=== PATIENT | male | born 1955 | race Caucasian/White ===

== ENCOUNTER 2019-03-21 10:56 | Emergency (ER) | payer SELFPAY ==
[~2019-03-21] VITALS: Ht 195.6 cm; Wt 127.0 kg
[2019-03-21] MEDS ORDERED: cloNIDine HCL 0.1 MG TAB PO ONE (11:15)
[2019-03-21 11:25] LABS: Basophils # (auto) 0.1 uL; Basophils % (auto) 0.8 % (0.0-2.0); Eosinophils # (auto) 0.1 uL; Eosinophils % (auto) 1.2 % (0.0-7.0); Hematocrit 49.5 % (41.0-53.0); Hemoglobin 17.4 g/dL (13.5-17.5); Lymphocytes # (auto) 2.5 uL; Lymphocytes % (auto) 33.5 % (10.0-50.0); Mean Corpuscular Hgb Conc. 35.2 g/dL (32.0-36.0); Mean Corpuscular Volume 96.7 fL (80.0-100.0); Monocytes # (auto) 1.1 uL; Monocytes % (auto) 14.4 % (0.0-12.0); Neutrophils # (auto) 3.7 uL; Neutrophils % (auto) 50.1 % (37.0-80.0); Nucleated Red Blood Cells % 0.1 %; Platelet Count (auto) 249 10^3/uL (140-450); Red Blood Cells 5.11 10^6/uL (4.5-5.90); Red Cell Distribution Width 13.7 % (11.8-14.3); White Blood Cell 7.4 10^3/uL (4.4-10.8)
[2019-03-21 11:39] LABS: Urine Bacteria FEW /hpf (None Seen); Urine Blood Negative /uL (Negative); Urine Mucus FEW (None Seen); Urine Specific Gravity 1.014 (1.001-1.035); Urine WBC 7 /hpf (0 - 3)
[2019-03-21 11:44] LABS: BUN/Creatinine Ratio 12.4; Calcium 9.2 mg/dL (8.5-10.1)
[2019-03-21 11:46] LABS: Alcohol, Urine < 3.0 mg/dL (0-5); Amphetamine Screen, Urine NEGATIVE (NEGATIVE); Barbiturate Scree,Urine NEGATIVE (NEGATIVE); Benzodiazephine Screen, Urine NEGATIVE (NEGATIVE); Cannabinoid Screen, Urine NEGATIVE (NEGATIVE); Cocaine Screen, Urine NEGATIVE (NEGATIVE); Opiate Scree,Urine NEGATIVE (NEGATIVE); Phencyclidine Screen, Urine NEGATIVE (NEGATIVE)
[2019-03-21 12:08] LABS: Potassium 2.9 mmol/L (3.5-5.1)
[2019-03-21] MEDS ORDERED: POTASSIUM EFFERVESENT TAB 25 MEQ PO ONE (12:15)
[2019-03-21] MEDS ORDERED: POTASSIUM CHL 20 Meq TABLET PO ONE (12:45)
[2019-03-21 13:16] VITALS: BP 156/112
== END 2019-03-21 13:25 | disposition home or self-care (01) ==
LOC: ER 11:02
DX: I10 Essential (primary) hypertension (principal); E87.6 Hypokalemia
CPT/HCPCS: 36415; 80048; 80307; 81001; 85025; 93005

== ENCOUNTER 2025-06-09 08:01 | Inpatient (IN) | payer OTHER ==
[2025-06-09] VITALS (15 sets, daily range): BP systolic 124–163; BP diastolic 92–118; PULSE 76–105; RESP 12–20; TEMP 97.5–97.6; O2SAT 91–96
[~2025-06-09] VITALS: Ht 195.6 cm; Wt 149.7 kg
[~2025-06-09 08:01] MED LIST: DOCU100T7 PO; LOSA-533 PO; MULT-930 PO
[2025-06-09] MEDS: ceFAZolin 2 GM/D5W50ml 50 ML IV ONE (08:17)
[2025-06-09] MEDS: TRANEXAMIC ACID 20 ML ONE (08:44)
[2025-06-09] MEDS: BUPIVACAINE W/ EPINEPH 0.5% INJ 50ML MDV IJ ONE (08:44)
[2025-06-09] MEDS: TETRACAINE 1% INJ 2 ML VIAL IJ ONE (09:30)
[2025-06-09] MEDS ORDERED: fentaNYL CITRATE 100 MCG/2 ML VL ONE (09:31)
[2025-06-09] MEDS ORDERED: MIDAZOLAM HCL 2MG/2ML 2ml VIAL (1mg/ml) ONE ×2 (09:32→10:33)
[2025-06-09] MEDS ORDERED: PROPOFOL 10 MG/ML 20 ML IV ONE (10:29)
[2025-06-09] MEDS: CEFEPIME 1GM/50ML 50 ML IV ONE (10:29)
[2025-06-09] MEDS ORDERED: MIDAZOLAM HCL 2MG/2ML 2ml VIAL (1mg/ml) IV PRN (10:30)
[2025-06-09] MEDS ORDERED: HYDROmorphone HCL 2 MG/ML VL/or syr IV PRN (10:30)
[2025-06-09] MEDS ORDERED: hydrALAZINE HCL 20 MG/ML VL IV PRN (10:30)
[2025-06-09] MEDS: KETOROLAC TROMETH 30 MG/ML 1ML VIAL ONE (11:30)
[2025-06-09] MEDS: MORPHINE SULF PF 5 MG/10 ML VIAL ONE (11:30)
[2025-06-09] MEDS: BUPIVACAINE 0.25% INJ 50ML VIAL ONE (11:30)
[2025-06-09] MEDS: VANCOMYCIN HCL 1000 MG VL ONE (12:00)
--- NOTE | 2025-06-09 12:08 | DVHOP2 ---
Operative Report - 2 Report Details Date: 06/09/25 Preop Diagnosis: Left knee degenerative arthritis Postop Diagnosis: Left knee degenerative arthritis Surgeon: Ashlee Jewell MD Programs Assistant: Erika KINCAID Anesthesiologist: Sharon Anesthesia: Regional Drains: Jones closed wound suction Implant: DonJoy size 11 femur PS, size 10 tibial base plate, size 12 poly, size 35 patella Consent: The patient was informed of the risks and benefits of the procedure. These include but are not limited to complications of anesthesia, postoperative infection, incomplete relief of symptoms, recurrence of symptoms, damage to blood vessels, nerves and tendons, deep venous thrombosis, pulmonary embolism and possible need for repeat surgery in the future. Complications: None Estimated Blood Loss: 100 cc Fluids: See anesthesia Findings: Varus deformity, osteophytes, denuded cartilage with eburnated bone Indications for Surgery: Left knee degenerative arthritis with severe pain and functional impairment despite nonoperative management Name of Procedure Performed For a total knee arthroplasty Procedure Details Procedure Details: The patient was brought to the operating room and placed on the table in the supine position after being given spinal anesthetic with adequate analgesia obtained. Surgical timeout was performed verifying patient, laterality and procedure Preop patient received IV cefepime IV Ancef and IV tranexamic acid. Tourniquet was applied to the lower extremity. Lower extremity was prepped and draped in sterile fashion. Extremity was elevated, exsanguinated Esmarch, and tourniquet inflated. Midline incision was made followed by medial arthrotomy. I exposed the anterior medial and lateral tibial plateau and the anterior dis tete femur. Bovie and aqua mantis were used for hemostasis. I excised the anterior meniscal tissue with Bovie. I excised a portion of the fat pad with Bovie. The patella was everted and the knee flexed. I drilled the distal femur and suctioned the hole to reduce the risk of fat emboli. I inserted intramedullary guide with 5 degree valgus setting. I pinned the distal femoral cutting block anteriorly. Intramedullary earnestine was removed. Distal femoral cut was made and the block removed. I brought my attention to the tibia setting up the external cutting jig for the tibia paying attention to slope, rotation and varus valgus alignment. I set the depth and pinned the block. I used the external alignment earnestine to aid in checking alignment. Bone cut was made and bone removed releasing soft tissue attachments with Bovie. Cutting block removed. I then checked the extension gap and deemed adequate and removed the femur and tibia pins. I flexed the knee and applied the femoral sizing guide to the femur. I checked the size and external rotation setting at 90 degrees to Whitesides line and checking the epicondylar axis. I drilled the holes then removed the sizing guide and pin. I then tapped on the 4 in 1 cutting block and checked with the zonia wing anteriorly to make sure that I would not notch then pinned the block. Cuts were made and the block and pins were removed. Bone was removed with curved osteotome. I used a rongeur to remove any remaining osteophytes at the femur and tibia. I then used a lamina appliance repairer to open up the back alternating between the medial and lateral side. Any remaining meniscal tissue was excised with scalpel. I used curved osteotome, curette and rongeur to remove any posterior osteophytes. I prophylactically coagulated with aqua mantis. I then tapped on the template for the box cut and pinned it. Box cut was made and bone removed. Template and pin removed. I then tapped on the femoral trial. I then brought my attention back to the tibia sizing it. I used the external alignment earnestine to make sure that rotation and alignment were good. I made a Bovie marisa at the tibial tray marisa identifying rotation for later use. I tried various tibial polytrials. [I then brought my attention to the patella. I sequentially dissected soft tissue with Bovie. I checked the thickness with caliper. I set the appropriate depth of cut on the cutting guide. I attached the cutting guide made my cut. I then sized the patella and made my drill holes. I then placed the patella trial with appropriate depth based on overall precut thickness. ] The patella tracked nicely without thumb pressure. I removed the trials. I pinned the tray and used the reamer and keel punch. The implants were brought into the field while bone preparation was started. I used both normal saline irrigation and the CarboJet to prepare the bone. I used the bone from the cuts to graft the femoral tunnel. Once cement was ready I applied cement to the tibial implant and tibial bone tapped it on and removed excess cement in usual fashion. In similar fashion I tapped on the femoral implant. I inserted the trial polyethylene and brought the knee into 30 degrees flexion. [I then applied the patella implant in similar fashion holding pressure with the pressurization device.] I irrigated with bacisurge irrigant. Once cement cured, I checked stability and range of motion as well as patella tracking. tourniquet was released and hemostasis maintained with aqua mantis. I inserted the polyethylene and again checked stability. I used a 2 grams of vancomycin half of which was placed deep and half superficial. I repaired the extensor mechanism with the knee in flexion with #1 Ethibond interrupted [id number]. Deep subcutaneous tissue was closed with 0 Vicryl. Superficial subcutaneous tissue was closed with 2-0 vicryl interrupted. Skin was closed with alexia. I then applied the [jones closed wound suction]. Patient tolerated the procedure well and was brought to recovery room in stable condition. Condition Stable Disposition Still a Patient ASHLEE JEWELL MD Jun 09, 2025 12:08
[2025-06-09] MEDS ORDERED: ACETAMINOPHEN 325 MG TAB PO PRN (12:15)
--- NOTE | 2025-06-09 13:29 | DVH ---
EXAM: XY L KNEE 3V XRAY CLINICAL INDICATION: Postop TECHNIQUE: XY L KNEE 3V XRAY Comparison: CR KNEE LEFT 3 VIEW on DOS: 08/27/24, XR HIP LIMITED RT on DOS: 01/31/23 FINDINGS/IMPRESSION: Left total knee arthroplasty
[2025-06-09] MEDS: ceFAZolin 2 GM/D5W50ml 50 ML IV SCH (15:19)
[2025-06-09] MEDS: KETOROLAC TROMETH 30 MG/ML 1ML VIAL IV SCH (17:40)
[2025-06-09] MEDS: ACETAMINOPHEN 325 MG TAB PO SCH (17:40)
[2025-06-09] MEDS: D5W/LACTATED RINGERS 1,000 ML IV SCH (17:41)
[2025-06-09] MEDS: ONDANSETRON HCL 4 MG/2 ML VIAL IV PRN (19:53)
[2025-06-09] MEDS: PREGABALIN 25 MG CAP PO SCH (21:41)
[2025-06-09] MEDS: LOSARTAN POTASSIUM 25 MG TAB PO SCH (21:42)
[2025-06-10] VITALS (18 sets, daily range): BP systolic 124–168; BP diastolic 82–112; PULSE 81–105; RESP 15–20; TEMP 97.3–98.7; O2SAT 90–94
[2025-06-10 07:12] LABS: Chloride 100 mmol/L (98-107); Potassium 3.8 mmol/L (3.5-5.1); Sodium 137 mmol/L (136-145)
[2025-06-10 07:13] LABS: Anion Gap 10 (5-15); Carbon Dioxide 27 mmol/L (20-31)
[2025-06-10 07:14] LABS: Calcium 8.7 mg/dL (8.7-10.4)
[2025-06-10 07:16] LABS: Hematocrit 39.3 % (41.0-53.0); Hemoglobin 13.6 g/dL (13.5-17.5); Mean Corpuscular Hemoglobin 33.9 pg (28.0-32.0); Mean Corpuscular Volume 98.3 fL (80.0-100.0); Nucleated Red Blood Cells % 0.0 %
[2025-06-10 07:18] LABS: BUN/Creatinine Ratio 17.3 (10.0-20.0); Blood Urea Nitrogen 24 mg/dL (9-23); Glucose 270 mg/dL (74-106)
--- NOTE | 2025-06-10 11:20 | DVHDS2 ---
Discharge Summary Date of Admission Jun 09, 2025 at 12:09 Date of Discharge: Jun 10, 2025 Labs/Diagnostic Data: Laboratory Results Test 06/10/25 04:55 White Blood Count 15.6 10^3/uL (4.4-10.8) Red Blood Count 4.00 10^6/uL (4.5-5.90) Hemoglobin 13.6 g/dL (13.5-17.5) Hematocrit 39.3 % (41.0-53.0) Mean Corpuscular Volume 98.3 fL (80.0-100.0) Mean Corpuscular Hemoglobin 33.9 pg (28.0-32.0) Mean Corpuscular Hemoglobin Concent 34.5 g/dL (32.0-36.0) Red Cell Distribution Width 13.3 % (11.8-14.3) Platelet Count 230 10^3/uL (140-450) Mean Platelet Volume 9.4 fL (6.9-10.8) Neutrophils (%) (Auto) 84.5 % (37.0-80.0) Lymphocytes (%) (Auto) 6.3 % (10.0-50.0) Monocytes (%) (Auto) 9.1 % (0.0-12.0) Eosinophils (%) (Auto) 0.0 % (0.0-7.0) Basophils (%) (Auto) 0.1 % (0.0-2.0) Neutrophils # (Auto) 13.1 10 ^3/uL (1.6-8.6) Lymphocytes # (Auto) 1.0 10 ^3/uL (0.4-5.4) Monocytes # (Auto) 1.4 10 ^3/uL (0-1.3) Eosinophils # (Auto) 0 10 ^3/uL (0-0.8) Basophils # (Auto) 0 10 ^3/uL (0-0.2) Nucleated Red Blood Cells 0.0 % Sodium Level 137 mmol/L (136-145) Potassium Level 3.8 mmol/L (3.5-5.1) Chloride Level 100 mmol/L (98-107) Carbon Dioxide Level 27 mmol/L (20-31) Anion Gap 10 (5-15) Blood Urea Nitrogen 24 mg/dL (9-23) Creatinine 1.39 mg/dL (0.700-1.30) Glomerular Filtration Rate Calc 55 mL/min (>90) BUN/Creatinine Ratio 17.3 (10.0-20.0) Serum Glucose 270 mg/dL (74-106) Calcium Level 8.7 mg/dL (8.7-10.4) Other Laboratory Tests 06/10/25 04:55 Brief Hx & Hospital Course: Patient was brought to the hospital yesterday to undergo a left total knee arthroplasty. He tolerated the procedure well without complications and was kept overnight for postoperative observation. Patient has remained medically stable denying any overnight events reports being able to get up and walk with the help of physical therapy and his walker and was only able to take a few steps outside of his door yesterday both able to go down the dubose and back to his room today. Patient reports some postoperative knee pain that is being well managed with the help of pain medication. Patient's nurse reports that the patient's oxygen levels has been at 92 on room air and is currently on 3 L of supplemental oxygen via nasal cannula with the patient denying any complaints of shortness of breath and only complains of a sore throat. Patient was otherwise feeling well denying any other complaints or concerns during my evaluation and would like to go home but keep it his oxygen levels being low on room air and currently being on supplemental oxygen via nasal cannula we will wean off the oxygen and have the patient walk with physical therapy later today if he is able to successfully walk with his oxygen labeled remaining stable we will discharge home if not we will keep an additional date. Patient understood and agreed. Condition at Discharge: Stable Final Diagnosis/Problems List Left knee degenerative arthritis Discharge Disposition: Still a Patient Discharge Instruct/Medications Scheduled Docusate Sodium (Stool Softener), Unknown Dose PO DAILY, (Reported) Losartan Potassium (Losartan Potassium), 2 TAB PO BID, (Reported) Miscellaneous Medications Multiple Vitamins W/ Minerals (One Daily Mens 50+ Multiv), 1 TAB PO, (Reported) Discharge Statement: "Patient was advised to return to the ER or call 911 if any headaches, dizziness, shortness of breath, chest pain, abdominal pain, bleeding, fevers, or worsening of medical condition. Patient was counseled about treatment plan, medications, possible side effects, patientverbalized understanding. All questions were answered to the best of my ability. This discharge took greater then 30 minutes in planning, reviewing documentation, counseling the patient, and discussing with other team members." ASSESSMENT ASSESSMENT Assessment Left knee degenerative arthritis DIONNE ENGLISH Jun 10, 2025 11:20
--- NOTE | 2025-06-10 11:22 | DVHPN2 ---
Progress Note - Dictate Date Seen: Jun 10, 2025 Medical Necessity Reason Pt with a Central, PICC or Fol: No Subjective Patient was lying comfortably in bed during my evaluation reports some postoperative knee pain that is being well managed with the help of pain medication. Patient reports that he is able to get up and walk with the help of physical therapy and his walker and was able to get down the dubose and back to his bed this morning and felt pretty stable. Patient was otherwise feeling well denying any complaints or concerns during my evaluation but nurse reports that the patient's oxygen levels have been at 92 on room air and is currently on 3 L of oxygen via nasal cannula. vital signs Vital Sign Date Time Temp Pulse Resp B/P (MAP) Pulse Ox O2 Delivery O2 Flow Rate FiO2 06/10/25 10:44 145/82 06/10/25 09:00 98.5 87 20 92 98.5 06/09/25 20:00 Nasal Cannula* 3 32 Total Intake and Output 06/09/25 06/09/25 06/10/25 15:00 23:00 07:00 Intake Total 100 ml 250 ml 1100 ml Output Total 450 ml 550 ml Balance 100 ml -200 ml 550 ml medications Current Medications Medications Dose Ordered Sig/Rogelio Route Start Time Stop Time Status Last Admin Dose Admin Ondansetron HCl 4 mg Q4HP PRN IV 06/09/25 10:30 06/09/25 19:53 4 MG Losartan Potassium 50 mg BID PO 06/09/25 22:00 06/10/25 10:44 50 MG Dextrose/Lactated Ringer's 1,000 ml @ 100 mls/hr Q10H IV 06/09/25 12:15 06/10/25 08:06 100 MLS/HR Acetaminophen 650 mg Q4HP PRN PO 06/09/25 12:15 Acetaminophen 650 mg Q6HR PO 06/09/25 18:00 06/10/25 05:39 650 MG Ketorolac Tromethamine 15 mg Q6HR IV 06/09/25 18:00 06/14/25 17:59 06/10/25 05:39 15 MG Pregabalin 50 mg BID PO 06/09/25 22:00 06/10/25 10:43 50 MG Oxycodone HCl 5 mg Q4HP PRN PO 06/09/25 12:15 Oxycodone HCl 10 mg Q4HP PRN PO 06/09/25 12:15 Aspirin 81 mg BID PO 06/09/25 22:00 06/10/25 10:43 81 MG objective A&O x4 in no acute distress Knee range of motion grossly limited with pain on movement Dolly dressing clean, dry, intact, and maintaining suction No distal edema or calf tenderness to palpation Neurovascularly intact with cap refill less than 2 seconds laboratory and microbiology Laboratory Tests 06/10/25 04:55 Test 06/10/25 04:55 Range/Units Serum Glucose 270 H 74-106 mg/dL Assessment/Plan Patient to be discharged home later today if successfully able to wean off of oxygen remaining stable after walking with physical therapy later today. If patient continues to the stent we will keep observing for an additional night. Advised the patient to follow up with our office in 10-14 days for his 1st postoperative evaluation and to remain weight-bearing as tolerated with the assistance of a walker. I advised the patient to maintain his dressings clean, dry, intact, and maintaining suction. Rx sent via our outpatient EMR system and advised the patient to call our office if he has any further questions or concerns. Patient understood and agreed. Plan discussed with: Patient DIONNE ENGLISH Jun 10, 2025 11:22
--- NOTE | 2025-06-10 17:04 | DVHINCON2 ---
Date Seen: Jun 10, 2025 Family History: Alcoholism G8 MOTHER Hypertension Allergies: Coded Allergies: NO KNOWN ALLERGIES (Unverified , 03/21/19) Home Meds Reported Medications Docusate Sodium (Stool Softener) 100 Mg Tab, PO DAILY, TAB 06/08/25 Multiple Vitamins W/ Minerals (One Daily Mens 50+ Multiv) 1 Tab Tab, 1 TAB PO, TAB 06/08/25 Losartan Potassium (Losartan Potassium) 25 Mg Tab, 2 TAB PO BID, TAB 06/08/25 Current Medications Current Medications Medications (Trade) Dose Ordered Sig/Rogelio Route PRN Reason Start Time Stop Time Status Last Admin Losartan Potassium (Cozaar Tablet) 50 mg BID PO 06/09/25 22:00 06/10/25 10:44 Acetaminophen (Tylenol Tablet) 650 mg Q6HR PO 06/09/25 18:00 06/10/25 12:07 Ketorolac Tromethamine (Toradol Injection) 15 mg Q6HR IV 06/09/25 18:00 06/14/25 17:59 06/10/25 12:07 Pregabalin (Lyrica Capsule) 50 mg BID PO 06/09/25 22:00 06/10/25 10:43 Aspirin 81 mg BID PO 06/09/25 22:00 06/10/25 10:43 Vital Signs Vital Signs Date Time Temp Pulse Resp B/P (MAP) Pulse Ox O2 Delivery O2 Flow Rate FiO2 06/10/25 16:34 98.6 101 20 160/96 (117) 93 98.6 06/09/25 20:00 Nasal Cannula* 3 32 Labs/Diagnostic Data Labs Test 06/10/25 04:55 Range/Units White Blood Count 15.6 H 4.4-10.8 10^3/uL Red Blood Count 4.00 L 4.5-5.90 10^6/uL Hemoglobin 13.6 13.5-17.5 g/dL Hematocrit 39.3 L 41.0-53.0 % Mean Corpuscular Volume 98.3 80.0-100.0 fL Mean Corpuscular Hemoglobin 33.9 H 28.0-32.0 pg Mean Corpuscular Hemoglobin Concent 34.5 32.0-36.0 g/dL Red Cell Distribution Width 13.3 11.8-14.3 % Platelet Count 230 140-450 10^3/uL Mean Platelet Volume 9.4 6.9-10.8 fL Neutrophils (%) (Auto) 84.5 H 37.0-80.0 % Lymphocytes (%) (Auto) 6.3 L 10.0-50.0 % Monocytes (%) (Auto) 9.1 0.0-12.0 % Eosinophils (%) (Auto) 0.0 0.0-7.0 % Basophils (%) (Auto) 0.1 0.0-2.0 % Neutrophils # (Auto) 13.1 H 1.6-8.6 10 ^3/uL Lymphocytes # (Auto) 1.0 0.4-5.4 10 ^3/uL Monocytes # (Auto) 1.4 H 0-1.3 10 ^3/uL Eosinophils # (Auto) 0 0-0.8 10 ^3/uL Basophils # (Auto) 0 0-0.2 10 ^3/uL Nucleated Red Blood Cells 0.0 % Sodium Level 137 136-145 mmol/L Potassium Level 3.8 3.5-5.1 mmol/L Chloride Level 100 98-107 mmol/L Carbon Dioxide Level 27 20-31 mmol/L Anion Gap 10 5-15 Blood Urea Nitrogen 24 H 9-23 mg/dL Creatinine 1.39 H 0.700-1.30 mg/dL Glomerular Filtration Rate Calc 55 >90 mL/min BUN/Creatinine Ratio 17.3 10.0-20.0 Serum Glucose 270 H 74-106 mg/dL Calcium Level 8.7 8.7-10.4 mg/dL GILDARDO MISHRA MD Jun 10, 2025 17:04
[2025-06-11] VITALS (11 sets, daily range): BP systolic 154–193; BP diastolic 108–122; PULSE 104–112; RESP 16–20; TEMP 98.2–99.1; O2SAT 91–99
[2025-06-11] MEDS: FUROSEMIDE 20 MG/2 ML VIAL IV ONE (14:27)
[2025-06-11] MEDS: ALBUTEROL SULF 2.5 MG/0.5ML(0.5%) NEB SOLN NEB SCH (19:05)
[2025-06-12] VITALS (21 sets, daily range): BP systolic 137–162; BP diastolic 92–113; PULSE 84–107; RESP 16–20; TEMP 97.4–98.6; O2SAT 90–99
--- NOTE | 2025-06-12 11:13 | DVHPN2 ---
Progress Note - Dictate Date Seen: Jun 11, 2025 Medical Necessity Reason Pt with a Central, PICC or Fol: No Subjective Patient was lying comfortably in bed during my evaluation reports some postoperative knee pain that is continued to be well managed with the help of pain medication. Patient reports that he is able to get up and walk with the help of physical therapy and his walker and was able to get down the dubose and back to his bed this morning and continues to feel pretty stable. Patient was otherwise feeling well denying any complaints or concerns during my evaluation but reports continuing to use supplemental oxygen via nasal cannula but was able to walk with physical therapy this morning without oxygen and denied any chest pain, shortness of breath, or lightheadedness, and otherwise felt well. vital signs Vital Sign Date Time Temp Pulse Resp B/P (MAP) Pulse Ox O2 Delivery O2 Flow Rate FiO2 06/11/25 09:38 168/113 06/11/25 08:45 98.4 106 16 94 98.4 06/10/25 20:00 Nasal Cannula* 1 24 Total Intake and Output 06/10/25 06/10/25 06/11/25 15:00 23:00 07:00 Intake Total 1000 ml 100 ml Output Total 0 ml 1000 ml Balance 1000 ml -900 ml medications Current Medications Medications Dose Ordered Sig/Rogelio Route Start Time Stop Time Status Last Admin Dose Admin Ondansetron HCl 4 mg Q4HP PRN IV 06/09/25 10:30 06/09/25 19:53 4 MG Losartan Potassium 50 mg BID PO 06/09/25 22:00 06/11/25 09:38 50 MG Dextrose/Lactated Ringer's 1,000 ml @ 100 mls/hr Q10H IV 06/09/25 12:15 06/11/25 04:29 100 MLS/HR Acetaminophen 650 mg Q4HP PRN PO 06/09/25 12:15 Acetaminophen 650 mg Q6HR PO 06/09/25 18:00 06/11/25 12:33 650 MG Ketorolac Tromethamine 15 mg Q6HR IV 06/09/25 18:00 06/14/25 17:59 06/11/25 12:34 15 MG Pregabalin 50 mg BID PO 06/09/25 22:00 06/11/25 09:39 50 MG Oxycodone HCl 5 mg Q4HP PRN PO 06/09/25 12:15 Oxycodone HCl 10 mg Q4HP PRN PO 06/09/25 12:15 Aspirin 81 mg BID PO 06/09/25 22:00 06/11/25 09:38 81 MG objective A&O x4 in no acute distress Knee range of motion grossly limited with pain on movement Dolly dressing clean, dry, intact, and maintaining suction No distal edema or calf tenderness to palpation Neurovascularly intact with cap refill less than 2 seconds laboratory and microbiology Laboratory Tests 06/10/25 04:55 Test 06/10/25 04:55 Range/Units Serum Glucose 270 H 74-106 mg/dL Assessment/Plan Patient to be discharged home today and advised to remain weight-bearing as tolerated with the assistance of a walker and to follow up with our office in 10-14 days for his 1st postoperative evaluation. I also advised the patient to maintain his dressings clean, dry, intact, and maintaining suction and to call our office if he has any remaining questions or concerns. Rx sent via our outpatient EMR system. I also advised the patient to follow up with his primary care physician in regards to his uncontrolled hypertension. Patient understood and agreed. Plan discussed with: Patient DIONNE ENGLISH Jun 11, 2025 13:12
--- NOTE | 2025-06-12 11:16 | DVHINCON2 ---
Date of service: Jun 11, 2025 Reason for Consultation Blood pressure management History of Present Illness This is a 70-year-old gentleman with a osteoarthritis and obesity with a BMI 40 admitted to the hospital by orthopedic surgeon and underwent successful left knee arthroplasty. Postop patient is admitted to the hospital. His blood pressure noted to be elevated. Therefore hospitalist has been consulted for blood pressure management. Patient currently stable in bed. Denies any chest pain shortness for breath dizziness or lightheadedness. Other review of systems reviewed normal. Past Medical History Hypertension, osteoarthritis, morbid obesity with a BMI 40 Past Surgical History Total left knee arthroplasty Family History: Alcoholism G8 MOTHER Hypertension Allergies: Coded Allergies: NO KNOWN ALLERGIES (Unverified , 03/21/19) Home Meds Reported Medications Docusate Sodium (Stool Softener) 100 Mg Tab, PO DAILY, TAB 06/08/25 Multiple Vitamins W/ Minerals (One Daily Mens 50+ Multiv) 1 Tab Tab, 1 TAB PO, TAB 06/08/25 Losartan Potassium (Losartan Potassium) 25 Mg Tab, 2 TAB PO BID, TAB 06/08/25 Current Medications Current Medications Medications (Trade) Dose Ordered Sig/Rogelio Route PRN Reason Start Time Stop Time Status Last Admin Clonidine HCl (Catapres Tablet) 0.1 mg Q4HP PRN PO SBP>150 06/11/25 14:00 06/11/25 14:28 Review of Systems No fevers chills or sweats. No complaints of chest pain or shortness for breath. Complains of left knee pain 5 out of 10. Other review of systems reviewed normal Vital Signs Vital Signs Date Time Temp Pulse Resp B/P (MAP) Pulse Ox O2 Delivery O2 Flow Rate FiO2 06/11/25 14:28 184/119 06/11/25 13:00 98.4 104 17 94 98.4 06/11/25 08:00 Nasal Cannula* 1 24 Physical Exam Pleasant gentleman alert awake oriented x3. HEENT neck supple no JVD pupils equal round react to light. Heart regular rate and rhythm S1-S2 without murmurs. Lungs fair air movement with a degraded breath sounds in the bases. No audible wheezing or rales. Chest tube will expansion. Abdomen is obese soft nontender positive bowel sounds. Extremities no edema positive distal pedal pulses. Left knee areas covered with a dressing. Labs/Diagnostic Data Labs Test 06/10/25 04:55 Range/Units White Blood Count 15.6 H 4.4-10.8 10^3/uL Red Blood Count 4.00 L 4.5-5.90 10^6/uL Hemoglobin 13.6 13.5-17.5 g/dL Hematocrit 39.3 L 41.0-53.0 % Mean Corpuscular Volume 98.3 80.0-100.0 fL Mean Corpuscular Hemoglobin 33.9 H 28.0-32.0 pg Mean Corpuscular Hemoglobin Concent 34.5 32.0-36.0 g/dL Red Cell Distribution Width 13.3 11.8-14.3 % Platelet Count 230 140-450 10^3/uL Mean Platelet Volume 9.4 6.9-10.8 fL Neutrophils (%) (Auto) 84.5 H 37.0-80.0 % Lymphocytes (%) (Auto) 6.3 L 10.0-50.0 % Monocytes (%) (Auto) 9.1 0.0-12.0 % Eosinophils (%) (Auto) 0.0 0.0-7.0 % Basophils (%) (Auto) 0.1 0.0-2.0 % Neutrophils # (Auto) 13.1 H 1.6-8.6 10 ^3/uL Lymphocytes # (Auto) 1.0 0.4-5.4 10 ^3/uL Monocytes # (Auto) 1.4 H 0-1.3 10 ^3/uL Eosinophils # (Auto) 0 0-0.8 10 ^3/uL Basophils # (Auto) 0 0-0.2 10 ^3/uL Nucleated Red Blood Cells 0.0 % Sodium Level 137 136-145 mmol/L Potassium Level 3.8 3.5-5.1 mmol/L Chloride Level 100 98-107 mmol/L Carbon Dioxide Level 27 20-31 mmol/L Anion Gap 10 5-15 Blood Urea Nitrogen 24 H 9-23 mg/dL Creatinine 1.39 H 0.700-1.30 mg/dL Glomerular Filtration Rate Calc 55 >90 mL/min BUN/Creatinine Ratio 17.3 10.0-20.0 Serum Glucose 270 H 74-106 mg/dL Calcium Level 8.7 8.7-10.4 mg/dL Assessment Malignant hypertension Degenerative arthritis Status post left total knee arthroplasty Postop atelectasis with a transient hypoxemia I will resume his losartan that he takes at home. Says at home his blood pressure is usually in normal range below 150/80. I will stop his IV fluids. We will use clonidine as needed for blood pressure control. Control his pain aggressively with the pain medications and may be contributing to some of his elevated blood pressure. Encouraged incentive spirometry. Otherwise continue rest of supportive care and treatment. Once his pain is controlled and blood pressure improves he can be discharged home. Discussed with the patient as well with the nurse at bedside regarding care plan. Plan discussed with: Patient, Other CATRACHO VIVAR MD Jun 11, 2025 15:02
[2025-06-12] MEDS ORDERED: FLUT1SPR5 (14:43)
[2025-06-12] MEDS ORDERED: HYDR-5052 PO (14:43)
[2025-06-12] MEDS ORDERED: LOSA-533 PO (14:43)
--- NOTE | 2025-06-12 14:46 | DVHDS2 ---
Discharge Summary Date of Admission Jun 09, 2025 at 12:09 Date of Discharge: Jun 10, 2025 Labs/Diagnostic Data: Laboratory Results Test 06/10/25 04:55 White Blood Count 15.6 10^3/uL (4.4-10.8) Red Blood Count 4.00 10^6/uL (4.5-5.90) Hemoglobin 13.6 g/dL (13.5-17.5) Hematocrit 39.3 % (41.0-53.0) Mean Corpuscular Volume 98.3 fL (80.0-100.0) Mean Corpuscular Hemoglobin 33.9 pg (28.0-32.0) Mean Corpuscular Hemoglobin Concent 34.5 g/dL (32.0-36.0) Red Cell Distribution Width 13.3 % (11.8-14.3) Platelet Count 230 10^3/uL (140-450) Mean Platelet Volume 9.4 fL (6.9-10.8) Neutrophils (%) (Auto) 84.5 % (37.0-80.0) Lymphocytes (%) (Auto) 6.3 % (10.0-50.0) Monocytes (%) (Auto) 9.1 % (0.0-12.0) Eosinophils (%) (Auto) 0.0 % (0.0-7.0) Basophils (%) (Auto) 0.1 % (0.0-2.0) Neutrophils # (Auto) 13.1 10 ^3/uL (1.6-8.6) Lymphocytes # (Auto) 1.0 10 ^3/uL (0.4-5.4) Monocytes # (Auto) 1.4 10 ^3/uL (0-1.3) Eosinophils # (Auto) 0 10 ^3/uL (0-0.8) Basophils # (Auto) 0 10 ^3/uL (0-0.2) Nucleated Red Blood Cells 0.0 % Sodium Level 137 mmol/L (136-145) Potassium Level 3.8 mmol/L (3.5-5.1) Chloride Level 100 mmol/L (98-107) Carbon Dioxide Level 27 mmol/L (20-31) Anion Gap 10 (5-15) Blood Urea Nitrogen 24 mg/dL (9-23) Creatinine 1.39 mg/dL (0.700-1.30) Glomerular Filtration Rate Calc 55 mL/min (>90) BUN/Creatinine Ratio 17.3 (10.0-20.0) Serum Glucose 270 mg/dL (74-106) Calcium Level 8.7 mg/dL (8.7-10.4) Other Laboratory Tests 06/10/25 04:55 Brief Hx & Hospital Course: This is a 70-year-old gentleman with a osteoarthritis and obesity with a BMI 40 admitted to the hospital by orthopedic surgeon and underwent successful left knee arthroplasty. Postop patient is admitted to the hospital. His blood pressure noted to be elevated. Therefore hospitalist has been consulted for blood pressure management. Patient currently stable in bed. Denies any chest pain shortness for breath dizziness or lightheadedness. Other review of systems reviewed normal. He has started hydralazine blood pressure medication along with the his losartan he takes at home. His blood pressure has normalized. He is seen ambulating in the hallway this afternoon on room air his oxygenating above 90%. Therefore it is felt he could be safely discharged home. Patient does give history of congestion for which he is prescribed Flonase to take at home. I have advised him to continue the Flonase and his blood pressure medications and to keep blood pressure below 150/90. Otherwise given overall patient is stable he has been discharged home with instructions to follow up outpatient next week with the orthopedic surgeon for postop follow up. Also is advised to follow up his primary care physician in two weeks to adjust his blood pressure medications. Patient verbalized understanding his hospital diagnosis, treatment he received, discharge medications, discharge instructions and agree with follow-up plan of care as mentioned. Condition at Discharge: Stable Final Diagnosis/Problems List Left knee degenerative arthritis, malignant hypertension Discharge Disposition: Home Discharge Instruct/Medications Diet: Regular Activity: See Comment Activity comment: Patient to remain WBAT with the assistance of a walker Follow Up/Referral: Patient to follow up with our office in 10-14 days for his first postoperative evaluation. Medications: Rx sent via our outpatient EMR system Scheduled Docusate Sodium (Stool Softener), Unknown Dose PO DAILY, (Reported) Fluticasone Propionate (Nasal) (Flonase Allergy Relief), 50 MCG NA BID Hydralazine HCl (Hydralazine Hydrochloride), 50 MG PO TID Losartan Potassium (Losartan Potassium), 2 TAB PO BID Miscellaneous Medications Multiple Vitamins W/ Minerals (One Daily Mens 50+ Multiv), 1 TAB PO, (Reported) Discharge Statement: "Patient was advised to return to the ER or call 911 if any headaches, dizziness, shortness of breath, chest pain, abdominal pain, bleeding, fevers, or worsening of medical condition. Patient was counseled about treatment plan, medications, possible side effects, patientverbalized understanding. All questions were answered to the best of my ability. This discharge took greater then 30 minutes in planning, reviewing documentation, counseling the patient, and discussing with other team members." ASSESSMENT ASSESSMENT Assessment Left knee degenerative arthritis, malignant hypertension CATRACHO VIVAR MD Jun 12, 2025 14:46
== END 2025-06-12 21:46 | disposition home or self-care (01) | DRG 470 ==
LOC: SUR 08:01 → OVERFLOW 12:09 → TELE-WESTW 14:35
PROVIDERS: ADMIT Orthopaedic Surgery; ATTEND Hospitalist
PROC: 0SRD0J9 Replacement of Left Knee Joint with Synthetic Substitute, Cemented, Open Approach (ICD-10-PCS; principal; 2025-06-09 09:35)
DX: M17.12 Unilateral primary osteoarthritis, left knee (principal); E66.01 Morbid (severe) obesity due to excess calories; I10 Essential (primary) hypertension; Z68.41 Body mass index [BMI] 40.0-44.9, adult; M21.162 Varus deformity, not elsewhere classified, left knee; M25.762 Osteophyte, left knee; Z82.49 Family history of ischemic heart disease and other diseases of the circulatory system; Z79.899 Other long term (current) drug therapy
CPT/HCPCS: 36415; 73562; 80048; 85025; 86850; 86900; 86901; 94640; 97110; 97116; 97163; 97530; G0378; J1100; J1885; J2250; J2405; J2704; J3490